=== PATIENT | male | born 1965 | race Caucasian/White ===

== ENCOUNTER 2024-09-04 01:17 | Day surgery (SDC) | payer BC, SELFPAY ==
[2024-08-27 11:19] VITALS: BMI 35.4
[2024-09-04 07:24] VITALS: BP 142/98; PULSE 88; RESP 16; TEMP 36; O2SAT 96; BMI 33.3
[2024-09-04] MEDS: LACTATED RINGERS 1,000 ML 150 ML IV CONT (07:34)
--- NOTE | 2024-09-04 07:52 | PM.HPGS ---
History of Present Illness History of Present Illness Consent: Risks, benefits, and alternatives have been discussed and questions answered. Patient agrees to proceed with procedure. Chief complaint: Family HX malignant of digestive organs, HX colon Narrative: Storm Choe is a 59 year old male here for colonoscopy, last one 5 years ago, mother had colon cancer Review of Systems Review of Systems: All systems reviewed & are unremarkable except as noted in HPI and below PMFSH Past Medical History Medical History (Updated 09/04/24 @ 07:53 by Morgan Dennis MD) Family history of colon cancer in mother Social History Social History Smoking status: Never smoker Alcohol intake: never Substance use: never Substance use type: does not use Living arrangements: with family Spiritual care concerns: No Meds Home Medications and Allergies Home Medications Medication Instructions Recorded Confirmed Type gabapentin 100 mg capsule 100 mg PO DAILY 08/27/24 09/04/24 History hydrocodone 10 mg-acetaminophen 10 tablet PO PRN 08/27/24 09/04/24 History 325 mg tablet Allergies Allergy/AdvReac Type Severity Reaction Status Date / Time No Known Allergies Allergy Mild Verified 09/04/24 07:23 Vital Signs Vital Signs - 24 hr 09/04/24 07:24 Temperature 96.8 F L Pulse Rate 88 Respiratory Rate 16 Blood Pressure 142/98 H Pulse Oximetry 96 Oxygen Delivery Room Air Exam Const: General: comfortable and no acute distress HENMT: Face/Nose/Sinus: Normal nares present Eyes: General: appearance normal, both eyes and all related structures Neck: Neck: no JVD Resp: Auscultation: clear to auscultation bilaterally Cardio: Rate: regular rate Rhythm: regular rhythm GI: Inspection: non-distended GI Palp: Yes Soft to palpation Skin: General skin exam: normal color Neuro: General: gait normal Speech: normal speech Extrem: General: normal to inspection Psych: Mental Status: mental status grossly normal Assessment and Plan Assessment and plan (1) Family history of colon cancer in mother: Code(s): Z80.0 - Family history of malignant neoplasm of digestive organs Status: Acute Assessment and Plan: colonoscopy
--- NOTE | 2024-09-04 08:08 | WPDANESEPPF ---
Anes - Initial Pre Proc Eval Procedure: Operation Date: 09/04/24 08:30 Proposed Procedures p Colonoscopy - Morgan Dennis MD Date/Time: 09/04/24 08:08 Surgeon: Morgan Dennis MD Pre Op Diagnosis: Family HX malignant of digestive organs, HX colon Patient Data Age: 59 Gender: M Height: 1.7 m Weight: 96.4 kg Last Vital Signs Temp 36.0 C L 09/04/24 07:24 Pulse 88 09/04/24 07:24 Resp 16 09/04/24 07:24 BP 142/98 H 09/04/24 07:24 Pulse Ox 96 09/04/24 07:24 O2 Del Method Room Air 09/04/24 07:24 Allergies Allergy/AdvReac Type Severity Reaction Status Date / Time No Known Allergies Allergy Mild Verified 09/04/24 07:23 Home Medications Medication Instructions Recorded Confirmed Type gabapentin 100 mg capsule 100 mg PO DAILY 08/27/24 09/04/24 History hydrocodone 10 mg-acetaminophen 10 tablet PO PRN 08/27/24 09/04/24 History 325 mg tablet Patient hx anesthesia problems: none Family hx anesthesia problems: none Results Review: All pre-operative results and documents have been reviewed as part of the pre-operative evaluation. [facility], [facility] Past Medical History Medical History Family history of colon cancer in mother Social History Social History Smoking status: Never smoker Alcohol intake: never Substance use: never Substance use type: does not use Living arrangements: with family Spiritual care concerns: No Anes - Eval Final PreProcedure Day of Procedure 09/04/24 08:08 Patient weight: obese Heart: regular rate and rhythm Lungs: clear to auscultation Airway: Mallampati scale class III Neurological: alert and oriented Last oral intake: >/= 8 hours ASA classification: II Emergent: no Anesthetic plan: proceed Anesthesia type and monitoring: general GIVS Results Review: All pre-operative results and documents have been reviewed as part of the pre-operative evaluation. Informed Consent: The patient's anesthetic plan and its attendant risks and benefits were discussed with the patient/family/POA. Questions were solicited and answers provided to the satisfaction of the patient/family/POA.
[2024-09-04 09:23] VITALS: BP 103/76; PULSE 93; RESP 19; O2SAT 93
[2024-09-04 09:33] VITALS: BP 105/80; PULSE 86; RESP 17; O2SAT 93
[2024-09-04 09:43] VITALS: BP 110/76; PULSE 85; RESP 19; O2SAT 95
== END 2024-09-04 09:52 | disposition home or self-care (01) ==
PROVIDERS: PCP Physician Assistant; Visit Provider Internal Medicine Gastroenterology
PROC: 0DJD8ZZ Inspection of Lower Intestinal Tract, Via Natural or Artificial Opening Endoscopic (ICD-10-PCS; CPT 45378; principal; 2024-09-04 08:30)
DX: Z12.11 Encounter for screening for malignant neoplasm of colon (principal); D12.5 Benign neoplasm of sigmoid colon; K64.8 Other hemorrhoids; Z80.0 Family history of malignant neoplasm of digestive organs; E66.9 Obesity, unspecified; Z68.33 Body mass index [BMI] 33.0-33.9, adult
CPT/HCPCS: 45380; 88305; J2704; J7120